=== PATIENT | male | born 1955 | race Caucasian/White ===

== ENCOUNTER → 2021-05-30 | Outpatient (CLI) | payer MEDICARE, OTHER ==
[~2021-05-30] MED LIST: AMIL5TAB2 PO; ANTIBIOTIC; CEFD300C37 PO; CETI10TA76 PO; FLUT9.9S NS; LOSA1TAB25 PO; TAMS-11 PO
[2021-05-30 11:14] LABS: MEAN CORPUSCULAR HEMOGLOBIN 29.7 pg (27.5-34.5); MEAN CORPUSCULAR HGB CONC 33.1 g/dL (33.2-36.2); MEAN PLATELET VOLUME 7.6 fL (7.4-10.4); PLATELET COUNT 462 x10^3/uL (130-400); RED BLOOD COUNT 4.98 x10^6/uL (4.38-5.82); RED CELL DISTRIBUTION WIDTH 14.3 % (9.4-14.8)
[2021-05-30 11:19] LABS: MICROSCOPIC AUTO
[2021-05-30 11:24] LABS: INTERNATIONAL NORMALIZED RATIO 0.97 (0.93-1.1); PROTHROMBIN TIME 10.4 Seconds (9.6-11.5)
[2021-05-30 11:27] LABS: ALANINE AMINOTRANSFERASE 33 U/L (12-78); ALBUMIN 3.6 g/dL (3.4-5.0); ANION GAP 6 mmol/L (5-15); CALCIUM 9.4 mg/dL (8.5-10.1); CHLORIDE 110 mmol/L (98-107); CREATININE 0.98 mg/dL (0.7-1.3)
[2021-05-30 11:29] LABS: ALKALINE PHOSPHATASE 81 U/L (45-117); BILIRUBIN,TOTAL 0.4 mg/dL (0.2-1.0); TOTAL PROTEIN 7.5 g/dL (6.4-8.2)
[2021-05-30 11:44] LABS: BASOS#(MANUAL) 0.04 x10^3/uL (0-0.1); BASOS% (MANUAL) 1 % (0-1); EOS#(MANUAL) 0.35 x10^3/uL (0.0-0.4); EOS% (MANUAL) 8 % (1-7); LYMPH#(MANUAL) 1.28 x10^3/uL (1-3.4); LYMPHS% (MANUAL) 29 % (22-44); MONOS#(MANUAL) 0.57 x10^3/uL (0.3-2.7); MONOS% (MANUAL) 13 % (2-9); REACTIVE LYMPHS # (MANUAL) 0.13 x10^3/uL (0-0); REACTIVE LYMPHS % (MANUAL) 3 % (0-0); SEG#(MANUAL) 2.02 x10^3/uL (1.8-6.8); SEGS% (MANUAL) 46 % (42-75)
[2021-05-30 11:45] LABS: <PLATELET ESTIMATE> INCREASED; <PLT MORPHOLOGY> NORMAL PLT MORPH; <RBC MORPHOLOGY> NORMAL
== END | disposition home or self-care (01) ==
LOC: STAR 09:57
PROVIDERS: ATTEND Urology
DX: Z01.818 Encounter for other preprocedural examination (principal); N20.1 Calculus of ureter; Z20.822 Contact with and (suspected) exposure to COVID-19
CPT/HCPCS: 36415; 80053; 81001; 85025; 85610; 87086; 93005; U0003; U0005

== ENCOUNTER 2021-06-05 11:51 | Day surgery (SDC) | payer MEDICARE, OTHER ==
[~2021-06-05] VITALS: Ht 182.9 cm; Wt 89.3 kg
[2021-06-05 12:20] VITALS: BP 133/87
[2021-06-05] MEDS ORDERED: LACTATED RINGERS 1,000 ML IV SCH (12:30)
[2021-06-05] MEDS ORDERED: CHLORHEXIDINE 15 ML UDC PO ONE (12:30)
[2021-06-05] MEDS ORDERED: OMNIPAQUE 350 MG/ML, 50 ML BOTTLE ONE (13:45)
[2021-06-05] MEDS ORDERED: FENTANYL PF 250 MCG/5ML ONE (13:55)
[2021-06-05] MEDS ORDERED: MIDAZOLAM 1 MG/ML, 2ML ONE (13:55)
[2021-06-05] MEDS ORDERED: HALOPERIDOL 5 MG/ML IV PRN (14:00)
[2021-06-05] MEDS ORDERED: hydrALAzine 20 MG/ML, 1ML IV PRN (14:00)
[2021-06-05] MEDS ORDERED: LABETALOL 5MG/ML, 20ML IV PRN (14:00)
[2021-06-05] MEDS ORDERED: FENTANYL PF 100 MCG/2ML IV PRN (14:00)
[2021-06-05] MEDS ORDERED: MEPERIDINE/PF 25MG/0.5ML IVPush PRN (14:00)
[2021-06-05] MEDS ORDERED: DIPHENHYDRAMINE 50 MG/ML, 1ML IVPush PRN (14:00)
[2021-06-05] MEDS ORDERED: HYDROmorphone 1 MG/ML, 1ML INJ IVPush PRN (14:00)
[2021-06-05] MEDS ORDERED: PROMETHAZINE 25 MG/ML, 1ML IVPush PRN (14:00)
[2021-06-05] MEDS ORDERED: ACETAMINOPHEN 325 MG TABLET PO PRN (14:00)
[2021-06-05] MEDS ORDERED: OXYcodone 5 MG/5 ML ORAL.SOL UDC PO PRN (14:00)
[2021-06-05] MEDS ORDERED: EPHEDRINE 50 MG/ML, 1ML ONE (14:40)
[2021-06-05] MEDS ORDERED: DEXAMETHASONE 4 MG/ML, 1ML ONE (15:27)
[2021-06-05] MEDS ORDERED: CEFAZOLIN 1,000 MG ONE (15:27)
[2021-06-05] MEDS ORDERED: ONDANSETRON 2MG/ML, 2ML ONE (15:27)
[2021-06-05] MEDS ORDERED: PROPOFOL 10 MG/ML, 20ML ONE (15:27)
== END 2021-06-05 18:00 | disposition home or self-care (01) ==
LOC: OUT 11:51
PROVIDERS: ATTEND Urology
DX: Z46.6 Encounter for fitting and adjustment of urinary device (principal); N20.1 Calculus of ureter; N35.911 Unspecified urethral stricture, male, meatal; N40.0 Benign prostatic hyperplasia without lower urinary tract symptoms; N52.9 Male erectile dysfunction, unspecified; I10 Essential (primary) hypertension; G47.33 Obstructive sleep apnea (adult) (pediatric); Z79.891 Long term (current) use of opiate analgesic; Z79.899 Other long term (current) drug therapy; Z87.440 Personal history of urinary (tract) infections
CPT/HCPCS: 52353; 74018; 82360; 88300; C1769; J1100; J2250; J2405; J2704; J3010; J7120; 76000; J0690; Q9967